=== PATIENT | male | born 1945 | race Caucasian/White ===

== ENCOUNTER 2017-03-25 12:36 | Observation (INO) | payer OTHER, MEDICARE ==
[~2017-03-25] VITALS: Ht 174 cm; Wt 93.0 kg
[~2017-03-25 12:36] MED LIST: ATEN-100 PO; BRIM0.2S; BUDE100T PO; LATA.005%O OD; ZOCO40TA PO
[2017-03-25] MEDS ORDERED: IOHEXOL 350 MG/ML 10 ML VIAL (for RAD DIAG) IVCONTRAST ONE (12:37)
[2017-03-25 12:59] VITALS: BP 139/62; PULSE 82; RESP 16; TEMP 98.1; O2SAT 96
[2017-03-25 13:44] LABS: AUTOMATED NEUTROPHIL # 8.3 TH/MM3 (1.8-7.7); BASOPHIL % 0.3 % (0.0-2.0); EOSINOPHIL % 0.2 % (0.0-4.0); HEMATOCRIT 40.3 % (39.0-51.0); LYMPH % 6.4 % (9.0-44.0); LYMPHOCYTE # 0.6 TH/MM3 (1.0-4.8); MEAN CELL VOLUME 88.9 FL (80.0-100.0); MEAN CORPUSCULAR HEMOGLOBIN 30.9 PG (27.0-34.0); MEAN CORPUSCULAR HGB CONC 34.8 % (32.0-36.0); MEAN PLATELET VOLUME 9.2 FL (7.0-11.0); MONO % 7.1 % (0.0-8.0); MONOCYTE # 0.7 TH/MM3 (0-0.9); PLATELET COUNT 195 TH/MM3 (150-450); RED BLOOD COUNT 4.54 MIL/MM3 (4.50-5.90); RED CELL DISTRIBUTION WIDTH 13.7 % (11.6-17.2); WHITE BLOOD COUNT 9.6 TH/MM3 (4.0-11.0)
[2017-03-25 14:00] VITALS: BP 156/73; PULSE 78; RESP 18; O2SAT 97
[2017-03-25 14:02] LABS: ALBUMIN 3.2 GM/DL (3.4-5.0); AST (GOT) 26 U/L (15-37); BICARBONATE 24.4 MEQ/L (21.0-32.0); BLOOD UREA NITROGEN 14 MG/DL (7-18); CALCIUM 8.4 MG/DL (8.5-10.1); CHLORIDE 105 MEQ/L (98-107); CREATININE 1.13 MG/DL (0.60-1.30); GLOMERULAR FILTRATION RATE 64 ML/MIN (>89); GLUCOSE,RANDOM 151 MG/DL (74-106); SODIUM (NA) 138 MEQ/L (136-145)
[2017-03-25 14:05] LABS: ALKALINE PHOSPHATASE 92 U/L (45-117); ALT (GPT) 41 U/L (12-78); TOTAL BILIRUBIN ADULT 1.1 MG/DL (0.2-1.0); TOTAL PROTEIN 6.9 GM/DL (6.4-8.2)
--- NOTE | 2017-03-25 15:13 | RADRPT ---
EXAM DATE/TIME: 03/25/2017 14:47 [facility] COMPARISON: CHEST SINGLE AP, July 09, 2014, 3:39. INDICATIONS : Dizziness and shortness of breath. MEDICAL HISTORY : Lymphoma. Hypertension. SURGICAL HISTORY : Colon resection. Rotator cuff, left. ENCOUNTER: Initial ACUITY: 2 days PAIN SCORE: 0/10 LOCATION: Bilateral chest FINDINGS: A single view of the chest demonstrates the lungs to be symmetrically aerated without evidence of mas s, infiltrate or effusion. The cardiomediastinal contours are unremarkable. Osseous structures are intact. CONCLUSION: No acute disease. Lonnie Washington MD on March 25, 2017 at 15:05 Board Certified Radiologist. This report was verified electronically.
--- NOTE | 2017-03-25 15:20 | RADRPT ---
EXAM DATE/TIME: 03/25/2017 15:07 [facility] COMPARISON: MRI BRAIN W/O CONTRAST, July 04, 2015, 11:18. INDICATIONS : Weakness for two days. RADIATION DOSE: 56.35 CTDIvol (mGy) MEDICAL HISTORY : Hypertension. Lymphoma. SURGICAL HISTORY : ENCOUNTER: Initial ACUITY: 1 day PAIN SCALE: 0/10 LOCATION: cranial TECHNIQUE: Multiple contiguous axial images were obtained of the head. Using automated exposure control and adj ustment of the mA and/or kV according to patient size, radiation dose was kept as low as reasonably a chievable to obtain optimal diagnostic quality images. DICOM format image data is available electro nically for review and comparison. FINDINGS: CEREBRUM: The ventricles are mildly prominent. Areas of low-attenuation in the periventricular white matter. N o evidence of midline shift, mass lesion, hemorrhage or acute infarction. No extra-axial fluid colle ctions are seen. POSTERIOR FOSSA: The cerebellum and brainstem are intact. The 4th ventricle is midline. The cerebellopontine angle i s unremarkable. EXTRACRANIAL: The visualized portion of the orbits is intact. SKULL: The calvaria is intact. No evidence of skull fracture. CONCLUSION: 1. Cerebral atrophy and chronic ischemic small vessel vasculopathy. 2. No acute intracranial abnormality. Lonnie Washington MD on March 25, 2017 at 15:16 Board Certified Radiologist. This report was verified electronically.
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
--- NOTE | 2017-03-25 16:23 | RADRPT ---
EXAM DATE/TIME: 03/25/2017 16:00 [facility] COMPARISON: CT ABDOMEN & PELVIS W CONTRAST, November 30, 2014, 8:49. INDICATIONS : Diffuse abdomen pain, possible recurrence of lymphoma. IV CONTRAST: 86 cc Omnipaque 350 (iohexol) IV ORAL CONTRAST: No oral contrast ingested. RADIATION DOSE: 18.46 CTDIvol (mGy) ; Combined studies - Thorax/Abdomen/Pelvis MEDICAL HISTORY : Hypertension. Lymphoma. SURGICAL HISTORY : Colostomy. ENCOUNTER: Initial ACUITY: 2 days PAIN SCALE: 8/10 LOCATION: Bilateral lower quadrant TECHNIQUE: Volumetric scanning of the abdomen and pelvis was performed. Using automated exposure control and ad justment of the mA and/or kV according to patient size, radiation dose was kept as low as reasonably achievable to obtain optimal diagnostic quality images. DICOM format image data is available electro nically for review and comparison. FINDINGS: LOWER LUNGS: There is patchy opacity now noted in the left lower lobe. LIVER: Homogeneous density without lesion. There is no dilation of the biliary tree. Status post cholecyste ctomy. SPLEEN: Normal size without lesion. PANCREAS: Within normal limits. KIDNEYS: Normal in size and shape. There is no solid mass, stone or hydronephrosis. Simple cyst is again note d extending off the lower pole the right kidney. There is a smaller medial cysts. ADRENAL GLANDS: Within normal limits. VASCULAR: There is no aortic aneurysm. BOWEL/MESENTERY: The stomach, small bowel, and colon demonstrate no acute abnormality. There is no free intraperitone al air or fluid. Mild postsurgical changes are noted status post partial colectomy. ABDOMINAL WALL: Within normal limits. RETROPERITONEUM: There is no lymphadenopathy. BLADDER: No wall thickening or mass. REPRODUCTIVE: Within normal limits. INGUINAL: There is no lymphadenopathy or hernia. MUSCULOSKELETAL: Within normal limits for patient age. CONCLUSION: 1. No evidence of adenopathy. 2. The spleen is within normal limits. 3. Unremarkable bowel gas pattern with no inflammatory change. 4. Mild patchy opacity in the posterior left lower lobe which could represent pneumonia. [facility] for further details. Seamus Bond MD on March 25, 2017 at 16:15 Board Certified Radiologist. This report was verified electronically.
--- NOTE | 2017-03-25 16:36 | RADRPT ---
EXAM DATE/TIME: 03/25/2017 16:00 [facility] COMPARISON: No previous studies available for comparison. INDICATIONS : Short of breath, possible recurrence lymphoma. IV CONTRAST: 86 cc Omnipaque 350 (iohexol) IV RADIATION DOSE: 18.46 CTDIvol (mGy) ; Combined studies - Thorax/Abdomen/Pelvis MEDICAL HISTORY : Hypertension. Lymphoma. SURGICAL HISTORY : Colostomy. ENCOUNTER: Initial ACUITY: 2 days PAIN SCALE: 7/10 LOCATION: Bilateral chest TECHNIQUE: Volumetric scanning of the chest was performed. Using automated exposure control and adjustment of t he mA and/or kV according to patient size, radiation dose was kept as low as reasonably achievable to obtain optimal diagnostic quality images. DICOM format image data is available electronically for review and comparison. Follow-up recommendations for detected pulmonary nodules are based at a minimum on nodule size and pa tient risk factors according to Fleischner Society Guidelines. FINDINGS: LUNGS: There is a small area consolidation involving the posterior basilar segmental left lower lobe. There is circumferential thickening involving the subsegmental bronchi within this region as well. The tomás ining lungs are clear. No mass. PLEURA: There is no pleural thickening or pleural effusion. MEDIASTINUM: The heart is normal in size. Coronary artery atherosclerotic calcifications noted. Aorta and pulmonar y arteries are normal in caliber. No mass or adenopathy. AXILLAE: Within normal limits. No lymphadenopathy. SKELETAL: Within normal limits for patient age. MISCELLANEOUS: The visualized upper abdominal organs demonstrate no acute abnormality. CONCLUSION: 1. Consolidation with associated mild peribronchial thickening involving the left lower lobe likely r elating to an infectious infiltrate. No effusion. 2. Coronary artery atherosclerotic calcifications. 3. No CT evidence to suggest recurrent lymphoma. Jcarlos Del Toro Jr., MD on March 25, 2017 at 16:30 Board Certified Radiologist. This report was verified electronically.
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
[2017-03-25 17:04] VITALS: BP_SYST 114; BP_SYST 146; BP_SYST 150; BP_DIAS 57; BP_DIAS 67; RESP 18; RESP 20
[2017-03-25 17:19] VITALS: BP 142/63; PULSE 88; RESP 18; TEMP 95.5; O2SAT 98
--- NOTE | 2017-03-25 17:46 | HHI.HP ---
HPI Service [facility] Hospitalists Primary Care Physician [facility] Admission Diagnosis hypoglycemia, unsteady gait, dizziness, intractable hiccups Diagnoses: Chief Complaint: Unsteadiness Weak Travel History International Travel<30 Days: No Contact w/Intl Traveler <30 Da: No Traveled to Known Affected Are: No History of Present Illness Written by Betty Cook, acting as scribe for Dr. Castellanos on 03/25/17 at 17: 39. 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 Patient was actually at PT appointment at the [place] for his balance issues and was sent over to our ED for further evaluation. He denies any history of fall. Reports increased confusion disorientation and forgetfulness per the ED. He denies any headache. He endorses double vision. He denies any hearing loss. He denies any nausea, vomiting, chest pain or dyspnea. He denies any weakness. He reports lightheadedness when sitting up. In the EMS, he was found to be hypoglycemic with a blood sugar of 50 and was given oral glucose with improvement and repeat blood sugar to 154. He denies any history of DM. Patient states he didn't eat much for breakfast this morning, just a banana and iced T but does state that this his normal breakfast regimen. CT of the head shows no acute intracranial process. CT of the chest shows a likely infectious infiltrate left lower lobe. His orthostatics were positive dropping from 146 supine to 114 with standing. Review of Systems Except as stated in HPI: all other systems reviewed are Neg Past Family Social History Past Medical History Hypertension HLD Glaucoma History of perforated diverticulitis Hx of MALT lymphoma s/p resection and XRT Past Surgical History s/p Bowel resection and colostomy with subsequent takedown 5 yrs ago Reported Medications Simvastatin 40 mg by mouth daily Atenolol 25 mg daily Bupropion 150 mg by mouth 3 times a day Brimonidine tartrate 0.2% solution Xalatan Allergies: Coded Allergies: buspirone (Unverified Allergy, Severe, Nausea/Vomiting, 10/06/16) codeine (Unverified Allergy, Severe, Nausea/Vomiting, 10/06/16) fentanyl (Unverified Allergy, Severe, Nausea/Vomiting, 10/06/16) Active Ordered Medications Active Medications Iohexol (Omnipaque 350 Inj) 86 ml STK-MED ONCE IVCONTRAST Last administered on at 16:06; Admin Dose 86 ML; Start 03/25/17 at 12:37; Stop 03/25/17 at 16:04; Status DC Family History Patient denies any contributory FMHX Social History Patient denies any tobacco use or EtOH consumption. Physical Exam Vital Signs Vital Signs Date Time Temp Pulse Resp B/P (MAP) Pulse Ox O2 Delivery O2 Flow Rate FiO2 03/25/17 17:19 95.5 88 18 142/63 (89) 98 03/25/17 17:18 03/25/17 17:04 94 20 146/67 (93) 98 18 150/67 (94) 100 20 114/57 (76) 03/25/17 14:00 78 18 156/73 (100) 97 Room Air 03/25/17 12:59 98.1 82 16 139/62 (87) 96 Physical Exam GENERAL: This is a well-nourished, well-developed male patient, in no apparent distress. Awake and alert. Oriented 3. Patient is obviously unsteady upon standing and with attempts at ambulation. SKIN: No rashes, ecchymoses or lesions. Cool and dry. HEAD: Atraumatic. Normocephalic. No temporal or scalp tenderness. EYES: Pupils equal round and reactive. Extraocular motions intact. No scleral icterus. No injection or drainage. ENT: Nose without bleeding or purulent drainage. Throat without erythema, tonsillar hypertrophy or exudate. Uvula midline. Airway patent. NECK: Trachea midline. No lymphadenopathy. Supple, nontender, no meningeal signs. CARDIOVASCULAR: Regular rate and rhythm without murmurs, gallops, or rubs. RESPIRATORY: Clear to auscultation. Breath sounds equal bilaterally. No wheezes , rales, or rhonchi. GASTROINTESTINAL: Abdomen soft, non-tender, nondistended. No hepato-splenomegaly , or palpable masses. No guarding. MUSCULOSKELETAL: Extremities without clubbing, cyanosis, or edema. No joint tenderness, effusion, or edema noted. No calf tenderness. NEUROLOGICAL: Awake and alert. Cranial nerves II through XII grossly intact. Motor and sensory grossly within normal limits. Five out of 5 muscle strength in all muscle groups. Normal speech. Laboratory Laboratory Tests Test 03/25/17 13:10 White Blood Count 9.6 Red Blood Count 4.54 Hemoglobin 14.0 Hematocrit 40.3 Mean Corpuscular Volume 88.9 Mean Corpuscular Hemoglobin 30.9 Mean Corpuscular Hemoglobin Concent 34.8 Red Cell Distribution Width 13.7 Platelet Count 195 Mean Platelet Volume 9.2 Neutrophils (%) (Auto) 86.0 Lymphocytes (%) (Auto) 6.4 Monocytes (%) (Auto) 7.1 Eosinophils (%) (Auto) 0.2 Basophils (%) (Auto) 0.3 Neutrophils # (Auto) 8.3 Lymphocytes # (Auto) 0.6 Monocytes # (Auto) 0.7 Eosinophils # (Auto) 0.0 Basophils # (Auto) 0.0 CBC Comment DIFF FINAL Differential Comment Blood Urea Nitrogen 14 Creatinine 1.13 Random Glucose 151 Total Protein 6.9 Albumin 3.2 Calcium Level 8.4 Alkaline Phosphatase 92 Aspartate Amino Transf (AST/SGOT) 26 Alanine Aminotransferase (ALT/SGPT) 41 Total Bilirubin 1.1 Sodium Level 138 Potassium Level 4.1 Chloride Level 105 Carbon Dioxide Level 24.4 Anion Gap 9 Estimat Glomerular Filtration Rate 64 Result Diagram: 03/25/17 1310 03/25/17 1310 Imaging Last Impressions Abdomen/Pelvis CT 03/25/17 1537 Signed Impressions: Service Date/Time: March 16:00 - CONCLUSION: 1. No evidence of adenopathy. 2. The spleen is within normal limits. 3. Unremarkable bowel gas pattern with no inflammatory change. 4. Mild patchy opacity in the posterior left lower lobe which could represent pneumonia. Please see chest CT report for further details. Seamus Bond MD Chest X-Ray 03/25/17 1435 Signed Impressions: Service Date/Time: March 14:47 - CONCLUSION: No acute disease. Lonnie Washington MD Head CT 03/25/17 0000 Signed Impressions: Service Date/Time: March 15:07 - CONCLUSION: 1. Cerebral atrophy and chronic ischemic small vessel vasculopathy. 2. No acute intracranial abnormality. Lonnie Washington MD Chest CT 03/25/17 0000 Signed Impressions: Service Date/Time: March 16:00 - CONCLUSION: 1. Consolidation with associated mild peribronchial thickening involving the left lower lobe likely relating to an infectious infiltrate. No effusion. 2. Coronary artery atherosclerotic calcifications. 3. No CT evidence to suggest recurrent lymphoma. MD Ced Nielsen Jr. VTE Risk Assessment Caprini VTE Risk Assessment: Mod/High Risk (score >= 2) Caprini Risk Assessment Model Point Value = 1 Point Value = 2 Point Value = 3 Point Value = 5 Age 41-60 Minor surgery BMI > 25 kg/m2 Swollen legs Varicose veins or History of unexplained or recurrent spontaneous Oral contraceptives or hormone replacement Sepsis (< 1 month) Serious lung disease, including pneumonia (< 1 month) Abnormal pulmonary function Acute myocardial infarction Congestive heart failure (< 1 month) History of inflammatory bowel disease Medical patient at bed rest Age 61-74 Arthroscopic surgery Major open surgery (> 45 min) Laparoscopic surgery (> 45 min) Malignancy Confined to bed (> 72 hours) Immobilizing plaster cast Central venous access Age >= 75 History of VTE Family history of VTE Factor V Leiden Prothrombin [id number] Lupus anticoagulant Anticardiolipin antibodies Elevated serum homocysteine Heparin-induced thrombocytopenia Other congenital or acquired thrombophilia Stroke (< 1 month) Elective arthroplasty Hip, pelvis, or leg fracture Acute spinal cord injury (< 1 month) Prophylaxis Regimen Total Risk Factor Score Risk Level Prophylaxis Regimen 0-1 Low Early ambulation 2 Moderate Order ONE of the following: *Sequential Compression Device (SCD) *Heparin 5000 units SQ BID 3-4 Higher Order ONE of the following medications: *Heparin 5000 units SQ TID *Enoxaparin/Lovenox 40 mg SQ daily (WT < 150 kg, CrCl > 30 mL/min) *Enoxaparin/Lovenox 30 mg SQ daily (WT < 150 kg, CrCl > 10-29 mL/min) *Enoxaparin/Lovenox 30 mg SQ BID (WT < 150 kg, CrCl > 30 mL/min) AND/OR *Sequential Compression Device (SCD) 5 or more Highest Order ONE of the following medications: *Heparin 5000 units SQ TID (Preferred with Epidurals) *Enoxaparin/Lovenox 40 mg SQ daily (WT < 150 kg, CrCl > 30 mL/min) *Enoxaparin/Lovenox 30 mg SQ daily (WT < 150 kg, CrCl > 10-29 mL/min) *Enoxaparin/Lovenox 30 mg SQ BID (WT < 150 kg, CrCl > 30 mL/min) AND *Sequential Compression Device (SCD) Assessment and Plan Assessment and Plan 71yo male with PMHX of HTN, dyslipidemia and 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 Unsteady gait Possible orthostatic hypotension - CT the head shows no acute intracranial process, images reviewed by me - CT of the abdomen/pelvis shows no evidence of adenopathy, mild patchy opacity in the posterior left lower lobe representing pneumonia, images reviewed by me - CT chest has consolidation with associated mild peribronchial thickening involving left lower lobe likely related to infectious infiltrate, no evidence to suggest recurrent lymphoma, images reviewed by me - Consult Neurology, appreciate recommendations - orthostatic BP measurements positive - Consult PT - fall precautions Hypoglycemia - Blood sugar 50 in the ED - no hx of DM - continue to monitor blood sugars Pneumonia, community acquired - CT the chest as stated above - Chest x-ray shows no acute cardiopulmonary process, images reviewed by me - IV Azithromycin and Rocephin - monitor respiratory status - supplemental oxygen to maintain O2 sats above 92% Hypertension - hold antihypertensive medications for now due to positive orthostatics - monitor DVT prophylaxis - bilateral SCD/ASIA hose the above note was scribed by Ms.Shannon Cook. I attest that I had a face- to-face encounter with the patient and personally performed the history and physical exam, medical decision making and reviewed the findings and the plan with the patient. Discussed Condition With ED physician, nursing staff, patient Betty Cook Mar 25, 2017 17:46 Marie Castellanos MD Mar 25, 2017 18:23
[2017-03-25] MEDS: SODIUM CHLOR 0.9% 1000 ML INJ 1,000 ML IV SCH (18:29)
[2017-03-25 19:47] VITALS: BP_SYST 142; BP_SYST 160; BP_DIAS 65; BP_DIAS 72; PULSE 100; RESP 17; O2SAT 96
[2017-03-25] MEDS ORDERED: AZITHROMYCIN INJ 500 MG in SODIUM CHLOR 0.9% 250 ML INJ 250 ML IV SCH (20:00)
[2017-03-25] MEDS: PRAVASTATIN SOD 80 MG TAB PO SCH (20:28)
[2017-03-25] MEDS ORDERED: cefTRIAXone INJ 1,000 MG in SODIUM CHLORIDE 0.9% INJ 100 ML IV SCH (21:00)
[2017-03-25] MEDS: BRIMONIDINE TARTRATE 0.2% OPHT SOLN 5 ML BTL EACH EYE SCH (23:18)
[2017-03-25 23:19] VITALS: BP 137/64; PULSE 99; RESP 18; TEMP 99.7; O2SAT 94
[2017-03-26 03:46] VITALS: BP 139/67; PULSE 96; RESP 17; TEMP 99.6; O2SAT 95
[2017-03-26] MEDS: SODIUM CHLOR 0.9% 1000 ML INJ 1,000 ML IV SCH (05:38)
[2017-03-26 07:32] VITALS: BP 147/76; PULSE 92; RESP 18; TEMP 97.9; O2SAT 95
--- NOTE | 2017-03-26 10:25 | PD.CONS ---
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 Admitted to the hospital with generalized weakness and unsteady gait, was at PT appointment at the [place] for his balance issues, was sent to ED for acute confusion and symptoms of orthostasis. In the EMS, he was found to be hypoglycemic with glucose of 50 and was given oral glucose with improvement and repeat blood sugar to 154. On evaluation the patient has resolution of AMS, but nauseated. CT of the head shows no acute intracranial process. CT of the chest shows a likely infectious infiltrate left lower lobe. His orthostatics were positive dropping from 146 supine to 114 with standing. In discussing further with patient, he notes diplopia starting 2 months ago. He was evaluated at the [place], states that he saw Ophthalmology and prism lenses were prescribed with improvement in vision. Patient states that his balance has been off for a couple of months, and he has been going to PT for this. Review of Systems Except as stated in HPI: all other systems reviewed are Neg Past Family Social History Past Medical History Hypertension HLD Glaucoma History of perforated diverticulitis Hx of MALT lymphoma s/p resection and XRT Past Surgical History s/p Bowel resection and colostomy with subsequent takedown Reported Medications Simvastatin 40 mg by mouth daily Atenolol 25 mg daily Bupropion 150 mg by mouth 3 times a day Brimonidine tartrate 0.2% solution Xalatan Allergies: Coded Allergies: buspirone (Unverified Allergy, Severe, Nausea/Vomiting, 10/06/16) codeine (Unverified Allergy, Severe, Nausea/Vomiting, 10/06/16) fentanyl (Unverified Allergy, Severe, Nausea/Vomiting, 10/06/16) Family History Patient notes mother had Parkinson's Disease Social History Patient denies any tobacco use or EtOH consumption. Review of Systems All other ROS: Negative, ROS reviewed as documented in chart Past Family Social History Allergies: Coded Allergies: buspirone (Unverified Allergy, Severe, Nausea/Vomiting, 10/06/16) codeine (Unverified Allergy, Severe, Nausea/Vomiting, 10/06/16) fentanyl (Unverified Allergy, Severe, Nausea/Vomiting, 10/06/16) Active Ordered Medications Current Medications Medications (Trade) Dose Ordered Sig/Monica Route Start Time Stop Time Status Last Admin Sodium Chloride 1,000 ml @ 100 mls/hr Q10H IV 03/25/17 18:30 03/26/17 05:38 Ceftriaxone Sodium 1000 mg/ Sodium Chloride 100 ml @ 200 mls/hr Q24H IV 03/25/17 21:00 03/25/17 23:19 Azithromycin 500 mg/Sodium Chloride 250 ml @ 250 mls/hr Q24H IV 03/25/17 20:00 03/25/17 20:29 (Pravachol) 80 mg HS PO 03/25/17 21:00 (Alphagan 0.2% Opth Soln) 1 drop BID EACH EYE 03/25/17 21:30 03/25/17 23:18 (Xalatan 0.005% Opth Soln) 1 drop HS EACH EYE 03/26/17 21:00 Exam I&O / VS Vital Signs Date Time Temp Pulse Resp B/P (MAP) Pulse Ox O2 Delivery O2 Flow Rate FiO2 03/26/17 07:32 97.9 92 18 147/76 (99) 95 03/26/17 03:46 99.6 96 17 139/67 (91) 95 03/25/17 23:19 99.7 99 18 137/64 (88) 94 03/25/17 19:47 100 17 142/65 (90) 96 03/25/17 17:19 95.5 88 18 142/63 (89) 98 03/25/17 17:18 03/25/17 17:04 94 20 146/67 (93) 98 18 150/67 (94) 100 20 114/57 (76) 03/25/17 14:00 78 18 156/73 (100) 97 Room Air 03/25/17 12:59 98.1 82 16 139/62 (87) 96 General: Alert and Oriented, No acute distress Eye: PERRL, EOMI, Vision unchanged Respiratory: Lungs CTA, Non-labored respirations, Symmetrical expansion Cardiology: Normal rate, No edema Neurologic: Alert, Oriented, Normal sensory, Normal DTR's Psychiatric: Cooperative, Appropriate mood & affect, Normal judgement Exam Comments o x 3, moss answers to questions, world/dlrow, 5 quarters in $1.25, speech is fluent, EOMI without nystagmus, no temporal artery tenderness, no tremor, no drift, mild B/L upper extremity rigidity, no focal weakness, VFF, FNF intact, no clonus Review/Management Diagnosis/Plan: (1) Dizziness ICD Codes: R42 - Dizziness and giddiness Status: Acute Plan: Ortostatics IV hydration Getting IV Abx for possible CAP (2) Hypoglycemia ICD Codes: E16.2 - Hypoglycemia, unspecified Status: Acute Plan: Seems to be the main cause of his AMS, improving (3) Unsteady gait ICD Codes: R26.81 - Unsteadiness on feet Status: Chronic Plan: Has been chronic for a couple of months PT eval Fall precautions (4) Diplopia ICD Codes: H53.2 - Diplopia Status: Chronic Plan: rx prism lens by ophtho as outpt Kaushik Aquino Mar 26, 2017 10:25
[2017-03-26 11:15] VITALS: BP 162/74; PULSE 101; RESP 18; TEMP 98; O2SAT 95
--- NOTE | 2017-03-26 12:07 | HHI.PR ---
Subjective Remarks Follow up for hypoglycemia, unsteady gait, pneumonia. Patient is doing well, resting in bed. Has some cough, no fever, chills. Wants to go home if possible. Waiting for MRI studies. Objective Vitals Vital Signs Date Time Temp Pulse Resp B/P (MAP) Pulse Ox O2 Delivery O2 Flow Rate FiO2 03/26/17 11:15 98.0 101 18 162/74 (103) 95 03/26/17 07:32 97.9 92 18 147/76 (99) 95 03/26/17 03:46 99.6 96 17 139/67 (91) 95 03/25/17 23:19 99.7 99 18 137/64 (88) 94 03/25/17 19:47 100 17 142/65 (90) 96 03/25/17 17:19 95.5 88 18 142/63 (89) 98 03/25/17 17:18 03/25/17 17:04 94 20 146/67 (93) 98 18 150/67 (94) 100 20 114/57 (76) 03/25/17 14:00 78 18 156/73 (100) 97 Room Air 03/25/17 12:59 98.1 82 16 139/62 (87) 96 I/O 03/25/17 03/25/17 03/25/17 03/26/17 03/26/17 03/26/17 07:00 15:00 23:00 07:00 15:00 23:00 Intake Total 500 ml Balance 500 ml Intake Oral 500 ml Result Diagram: 03/25/17 1310 03/25/17 1310 Imaging Last Impressions Abdomen/Pelvis CT 03/25/17 1537 Signed Impressions: Service Date/Time: March 16:00 - CONCLUSION: 1. No evidence of adenopathy. 2. The spleen is within normal limits. 3. Unremarkable bowel gas pattern with no inflammatory change. 4. Mild patchy opacity in the posterior left lower lobe which could represent pneumonia. Please see chest CT report for further details. Seamus Bond MD Chest X-Ray 03/25/17 1435 Signed Impressions: Service Date/Time: March 14:47 - CONCLUSION: No acute disease. Lonnie Washington MD Head CT 03/25/17 0000 Signed Impressions: Service Date/Time: March 15:07 - CONCLUSION: 1. Cerebral atrophy and chronic ischemic small vessel vasculopathy. 2. No acute intracranial abnormality. Lonnie Washington MD Chest CT 03/25/17 0000 Signed Impressions: Service Date/Time: March 16:00 - CONCLUSION: 1. Consolidation with associated mild peribronchial thickening involving the left lower lobe likely relating to an infectious infiltrate. No effusion. 2. Coronary artery atherosclerotic calcifications. 3. No CT evidence to suggest recurrent lymphoma. Jcarlos Del Toro Jr., MD Objective Remarks GENERAL: Alert, NAD. SKIN: Warm and dry. HEAD: Normocephalic. EYES: No scleral icterus. No injection or drainage. NECK: Supple, trachea midline. No JVD or lymphadenopathy. CARDIOVASCULAR: Regular rate and rhythm without murmurs, gallops, or rubs. RESPIRATORY: Breath sounds equal bilaterally. No accessory muscle use. GASTROINTESTINAL: Abdomen soft, non-tender, nondistended. MUSCULOSKELETAL: No cyanosis, or edema. BACK: Nontender without obvious deformity. No CVA tenderness. Procedures None. 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 Unsteady gait orthostatic hypotension - CT head shows no acute abnormalities. - Neurology following, EEG and MRI studies pending. - Orthostatic hypotension was significant. On standing BP Dropped more than 30. Hypoglycemia - Blood sugar 50 in the ED, currently euglycemic. Pneumonia, community acquired - CT the chest shows left lung infiltrates. - Will switch to Levaquin 750mg Qday X 6 days. - DuoNeb PRN. Hypertension - D/C Atenolol and start Amlodipine 5mg Qday. Full code. SCDs. Discharge: Pending neurology clearance, patient can be discharged home. Kalli Rivera DO Mar 26, 2017 12:07 pm
[2017-03-26] MEDS ORDERED: amLODIPine BESYLATE 5 MG TAB PO ONE (12:15)
[2017-03-26] MEDS ORDERED: RESP: ALBUTEROL 2.5 MG/IPRATROPIUM 0.5 MG NEB (PRN) NEB (12:15)
--- NOTE | 2017-03-26 14:45 | RADRPT ---
EXAM DATE/TIME: 03/26/2017 14:02 [facility] COMPARISON: MRI BRAIN W/O CONTRAST, July 04, 2015, 11:18. INDICATIONS : Unsteady gait. Dizziness MEDICAL HISTORY : Lymphoma. SURGICAL HISTORY : Colon resection. Left shoulder, left hip. ENCOUNTER: Initial ACUITY: 1 day PAIN SCORE: 0/10 LOCATION: cranial TECHNIQUE: Multiplanar, multisequence MRI of the brain was performed without contrast. FINDINGS: The brain is stable in appearance. Central atrophy with ventriculomegaly and periventricular matter disease is again noted. There is no evidence of restricted diffusion, hemorrhage or mass effect. The cerebral hemispheres remain unremarkable in appearance CONCLUSION: 1. No evidence of acute infarct, hemorrhage, mass or edema. 2. Central atrophy and mild periventricular white matter disease; unchanged. Taj Cheema MD on March 26, 2017 at 14:39 Board Certified Radiologist. This report was verified electronically.
[2017-03-26] MEDS: BRIMONIDINE TARTRATE 0.2% OPHT SOLN 5 ML BTL EACH EYE SCH ×2 (14:55→21:51)
[2017-03-26] MEDS: LEVOFLOXACIN 750 MG TAB PO SCH (14:56)
[2017-03-26 15:14] VITALS: BP 152/68; PULSE 107; RESP 18; TEMP 98; O2SAT 95
--- NOTE | 2017-03-26 15:14 | RADRPT ---
EXAM DATE/TIME: 03/26/2017 14:02 [facility] COMPARISON: No previous studies available for comparison. INDICATIONS : Unsteady gait. MEDICAL HISTORY : Lymphoma. SURGICAL HISTORY : Colon resection. Left hip, left shoulder. ENCOUNTER: Initial ACUITY: 1 day PAIN SCORE: 0/10 LOCATION: Paraspinal TECHNIQUE: Multiplanar, multisequence MRI examination of the cervical spine was performed. FINDINGS: VERTEBRAE: Normal vertebral body height. Homogeneous marrow signal. Degenerative disc disease C4-5, C5-6 and C6 -7 levels. T2 signal abnormality in the brainstem. ALIGNMENT: Minimal anterolisthesis C4 on 5. CORD: Normal configuration and signal. POST FOSSA: The cerebellar tonsils are normal in position. C2-C3: The thecal sac has a normal configuration. There is no evidence of disc herniation or spinal canal s tenosis. The neural foramina are patent bilaterally. C3-C4: The thecal sac has a normal configuration. There is no evidence of disc herniation or spinal canal s tenosis. The neural foramina are patent bilaterally. C4-C5: Small broad-based protrusion abuts ventral thecal sac and abuts the ventral cord. No canal stenosis. Uncovertebral spurring causes mild bilateral neural foraminal encroachment. C5-C6: Mild broad-based protrusion abuts the thecal sac it abuts ventral cord. No canal stenosis. Uncoverteb ral spurring causes moderate bilateral neural foraminal encroachment. C6-C7: The thecal sac has a normal configuration. There is no evidence of disc herniation or spinal canal s tenosis. The neural foramina are patent bilaterally. C7-T1: The thecal sac has a normal configuration. There is no evidence of disc herniation or spinal canal s tenosis. The neural foramina are patent bilaterally. CONCLUSION: 1. Protrusions at C4-5 and C5-6 levels without canal stenosis. 2. Chronic ischemic change in the brainstem. Lonnie Washington MD on March 26, 2017 at 15:09 Board Certified Radiologist. This report was verified electronically.
[2017-03-26] MEDS ORDERED: METOCLOPRAMIDE HCL 10 MG TAB PO ONE (17:00)
--- NOTE | 2017-03-26 19:36 | EKG ---
Date Performed: 03/25/2017 Time Performed: 13:31:11 PTAGE: 71 years EKG: Sinus rhythm Since the prior tracing, there has been no significant change BORDERLINE ECG PREVIOUS TRACING : 07/07/2014 11.51 DOCTOR: Delbert Noland Interpretating Date/Time 03/26/2017 19:35:05
[2017-03-26 19:49] VITALS: BP 125/65; PULSE 111; RESP 18; TEMP 98.1; O2SAT 97
[2017-03-26] MEDS ORDERED: LATANOPROST 0.005% OPHT SOLN 2.5 ML BTL EACH EYE SCH (21:00)
[2017-03-26] MEDS: PRAVASTATIN SOD 80 MG TAB PO SCH (21:50)
[2017-03-26 23:49] VITALS: BP 155/69; PULSE 105; RESP 18; TEMP 97.8; O2SAT 94
[2017-03-27 04:32] VITALS: BP 148/84; PULSE 84; RESP 18; TEMP 98.9; O2SAT 96
--- NOTE | 2017-03-27 07:03 | MG ---
cc: JAMIA NASSAR MD Lab No: [id number] Date: 03/26/2017 Age:71 Sex: M Race: DATE OF : 1945 HISTORY: 71-year-old history of lightheadedness, diaphoresis, dizziness shuffling gait, forgetfulness. PROCEDURE: 107 Hz posterior rhythm, 2050 microvolts followed by bursts of 2-3 Hz generalized delta activity. Myogenic frontal artifact. Paroxysmal delta bursts occurring. The background slowing transition into drowsy state. Limited driving with photic stimulation. INTERPRETATION Mild encephalopathy in drowsy state. Clinical correlation. Jamia Nassar MD MG/ /9:21 PM /6:55 AM
[2017-03-27] MEDS: BRIMONIDINE TARTRATE 0.2% OPHT SOLN 5 ML BTL EACH EYE SCH (08:43)
[2017-03-27] MEDS: LEVOFLOXACIN 750 MG TAB PO SCH (08:43)
[2017-03-27] MEDS ORDERED: amLODIPine BESYLATE 5 MG TAB PO SCH (09:00)
[2017-03-27 09:39] VITALS: BP 148/65; PULSE 115; RESP 20; TEMP 98.2; O2SAT 96
--- NOTE | 2017-03-27 11:14 | HHI.DCPOC ---
Discharge Care Plan Diagnosis: (1) Pneumonia involving left lung (2) Unsteady gait Goals to Promote Your Health * To prevent worsening of your condition and complications * To maintain your health at the optimal level Directions to Meet Your Goals Take your medications as prescribed Follow your dietary instruction Follow activity as directed Keep your appointments as scheduled Take your immunizations and boosters as scheduled If your symptoms worsen call your PCP, if no PCP go to Urgent Care Center or Emergency Room Smoking is Dangerous to Your Health. Avoid second hand smoke Call the 24-hour hour crisis hotline for domestic abuse at Radha Espino MD Mar 27, 2017 11:14
[2017-03-27] MEDS ORDERED: LEVA750T9 PO (11:15)
[2017-03-27] MEDS ORDERED: AMLO5 PO (11:16)
--- NOTE | 2017-03-27 11:19 | HHI.DS ---
Discharge Summary Admission Date Mar 25, 2017 at 16:03 Discharge Date: Mar 27, 2017 Admitting Diagnosis hypoglycemia, unsteady gait, dizziness, intractable hiccups (1) Pneumonia involving left lung ICD Code: J18.9 - Pneumonia, unspecified organism Diagnosis: Principal (2) Hypoglycemia ICD Code: E16.2 - Hypoglycemia, unspecified Diagnosis: Principal Status: Acute (3) Unsteady gait ICD Code: R26.81 - Unsteadiness on feet Diagnosis: Principal Status: Chronic Procedures None. 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 ED with complaints of generalized weakness and unsteady gait for the past two weeks. Patient was actually at PT appointment at the [place] for his balance issues and was sent over to our ED for further evaluation. He denies any history of fall. Reports increased confusion disorientation and forgetfulness per the ED. He denies any headache. He endorses double vision. He denies any hearing loss. He denies any nausea, vomiting, chest pain or dyspnea. He denies any weakness. He reports lightheadedness when sitting up. In the EMS, he was found to be hypoglycemic with a blood sugar of 50 and was given oral glucose with improvement and repeat blood sugar to 154. He denies any history of DM. Patient states he didn't eat much for breakfast this morning, just a banana and iced T but does state that this his normal breakfast regimen. CT of the head shows no acute intracranial process. CT of the chest shows a likely infectious infiltrate left lower lobe. His orthostatics were positive dropping from 146 supine to 114 with standing. CBC/BMP: 03/25/17 1310 03/25/17 1310 Significant Findings Laboratory Tests Test 03/25/17 13:10 03/26/17 10:25 Neutrophils (%) (Auto) 86.0 % (16.0-70.0) Lymphocytes (%) (Auto) 6.4 % (9.0-44.0) Neutrophils # (Auto) 8.3 TH/MM3 (1.8-7.7) Lymphocytes # (Auto) 0.6 TH/MM3 (1.0-4.8) Random Glucose 151 MG/DL (74-106) Albumin 3.2 GM/DL (3.4-5.0) Calcium Level 8.4 MG/DL (8.5-10.1) Total Bilirubin 1.1 MG/DL (0.2-1.0) Estimat Glomerular Filtration Rate 64 ML/MIN (>89) Erythrocyte Sedimentation Rate 50 mm/hr (0-20) Imaging Last Impressions Cervical Spine MRI 03/26/17 Signed Impressions: Service Date/Time: Sunday, March 26, 2017 14:02 - CONCLUSION: 1. Protrusions at C4-5 and C5-6 levels without canal stenosis. 2. Chronic ischemic change in the brainstem. Lonnie Washington MD Brain MRI 03/26/17 Signed Impressions: Service Date/Time: Sunday, March 26, 2017 14:02 - CONCLUSION: 1. No evidence of acute infarct, hemorrhage, mass or edema. 2. Central atrophy and mild periventricular white matter disease; unchanged. Taj Cheema MD Abdomen/Pelvis CT 03/25/17 1537 Signed Impressions: Service Date/Time: March 16:00 - CONCLUSION: 1. No evidence of adenopathy. 2. The spleen is within normal limits. 3. Unremarkable bowel gas pattern with no inflammatory change. 4. Mild patchy opacity in the posterior left lower lobe which could represent pneumonia. Please see chest CT report for further details. Seamus Bond MD Chest X-Ray 03/25/17 1435 Signed Impressions: Service Date/Time: March 14:47 - CONCLUSION: No acute disease. Lonnie Washington MD Head CT 03/25/17 0000 Signed Impressions: Service Date/Time: March 15:07 - CONCLUSION: 1. Cerebral atrophy and chronic ischemic small vessel vasculopathy. 2. No acute intracranial abnormality. Lonnie Washington MD Chest CT 03/25/17 0000 Signed Impressions: Service Date/Time: March 16:00 - CONCLUSION: 1. Consolidation with associated mild peribronchial thickening involving the left lower lobe likely relating to an infectious infiltrate. No effusion. 2. Coronary artery atherosclerotic calcifications. 3. No CT evidence to suggest recurrent lymphoma. Jcarlos Del Toro Jr., MD PE at Discharge GENERAL: Alert, NAD. SKIN: Warm and dry. HEAD: Normocephalic. EYES: No scleral icterus. No injection or drainage. NECK: Supple, trachea midline. No JVD or lymphadenopathy. CARDIOVASCULAR: Regular rate and rhythm without murmurs, gallops, or rubs. RESPIRATORY: Breath sounds equal bilaterally. No accessory muscle use. GASTROINTESTINAL: Abdomen soft, non-tender, nondistended. MUSCULOSKELETAL: No cyanosis, or edema. BACK: Nontender without obvious deformity. No CVA tenderness. NEURO: AAO X 3. CN 2-12 intact. 5/5 upper and lower ext strength. Sensation intact. Pt update on day of discharge Follow-up for unsteady gait and dizziness Patient caregiver at the bedside during the interview. Patient stated that he has not had any episodes of dizziness. He stated that this has been intermittent for the past 3 months. At the moment he denies any neurological symptoms. Denies any chest pain, shortness of breathing, palpitation. Dizziness scribe more as a lightheadedness. He stated that when he tries to stand up quickly he feels unsteadiness on his feet. Patient stated that it then resolves. 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 ED with complaints of generalized weakness, double vision and unsteady gait for the past two weeks. Unsteady gait orthostatic hypotension - CT head shows no acute abnormalities. - Neurology following, EEG and MRI reviewed. EEG negative for any seizure activity. MRI does not show any acute etiology. - Orthostatic hypotension was significant. Patient was given IV fluids in which symptomatically helped him greatly. -Most likely in terms due to orthostatic hypotension. With oral intake or fluids seems outpatient so no medication was indicated. Patient so he will need to follow-up with his primary care provider to make sure that he continues to do well. -Education given on hydration and patient was given directions on how to go from a laying to sitting to standing position. So that he does not put himself in the situation where he stands too quickly in which she gets lightheadedness or dizziness. Hypoglycemia - Blood sugar 50 with a VAC. Otherwise blood sugars have been normal during his hospital course. Hemoglobin A1c was obtained but was pending on the day of discharge. Patient stated will not need to follow with PCP regards to results. Pneumonia, community acquired - CT the chest shows left lung infiltrates. -Prior to this patient had a cold and stated that his symptoms have improved. At the moment he is asymptomatic. He was put on Levaquin during hospitalization and sent home with a total of 7 days of treatment. Hypertension -Hospital course patient was tachycardic. His atenolol was discontinued. Will restart his atenolol since he is tachycardic most likely this was helping his heart rate. Continue amlodipine due to high blood pressure. Pt Condition on Discharge: Deteriorating Discharge Disposition: Discharge Home Discharge Time: > 30 minutes Discharge Instructions DIET: Follow Instructions for: Heart Healthy Diet Activities you can perform: See Additionl Instruction Other Activity Instructions: Do not drive until you are cleared by your primary care provider or neurologist. Follow up Referrals: Neurology - 1 Week PCP Follow-up - 1 Week New Medications: Amlodipine (Norvasc) 5 Mg Tab 5 MG PO DAILY for hypertension, #30 TAB 0 Refills Levofloxacin (Levaquin) 750 Mg Tablet 750 MG PO DAILY for pneumonia, #5 TAB 0 Refills Continued Medications: Atenolol (Atenolol) 25 Mg Tab 25 MG PO DAILY, TAB Brimonidine Tartrate (Brimonidine Tartrate) 0.2 % Jaswant 1 DROP BID, JASWANT Bupropion Hcl (Bupropion Hcl) 100 Mg Tab 150 MG PO Q12, TAB Latanoprost (Xalatan) 0.005 % Soln 1 DROP OD HS, ML Simvastatin (Zocor 40 mg) 40 Mg Tab 40 TAB PO HS, TAB Radha Espino MD Mar 27, 2017 11:19
[2017-03-27 12:10] VITALS: BP 142/60; PULSE 72; RESP 20; TEMP 97.9; O2SAT 98
[2017-03-27 12:31] LABS: HEMOGLOBIN A1C 5.6 % (4.3-6.0)
--- NOTE | 2017-03-29 09:54 | RADRPT ---
EXAM DATE/TIME: 03/26/2017 14:02 [facility] COMPARISON: MRA BRAIN W/O CONTRAST, July 04, 2015, 11:18. INDICATIONS : Dizziness. Unsteady gait. MEDICAL HISTORY : Lymphoma. SURGICAL HISTORY : Colon resection. lt shoulder, lt hip ENCOUNTER: Initial ACUITY: 1 day PAIN SCORE: 0/10 LOCATION: cranial Please note a normal MRA of the brain does not entirely exclude the possibility of a small aneurysm, nor the possibility of distal intracranial vessel disease. TECHNIQUE: 3D time of flight MRA was performed. Source images, multiplanar STS MIP, and 3D volume MIP reconstru ctions were reviewed. FINDINGS: There is poor visualization of the A-1 segment of the right anterior cerebral artery. This may be co ngenital. There is no major branch vessel occlusion Bibasilar artery is patent. CONCLUSION: Negative for major branch vessel occlusion. Justus Millard MD FACR Board Certified Radiologist. This report was verified electronically.
== END 2017-03-27 12:17 | disposition home or self-care (01) ==
LOC: NEPD 12:36 → NEDA 16:03 → NEPFCDU 17:41
PROVIDERS: ADMIT Family Medicine; ATTEND Family Medicine
DX: J18.9 Pneumonia, unspecified organism (principal); R26.81 Unsteadiness on feet; E78.5 Hyperlipidemia, unspecified; E16.2 Hypoglycemia, unspecified; I10 Essential (primary) hypertension; H40.9 Unspecified glaucoma; Z79.899 Other long term (current) drug therapy; Z90.49 Acquired absence of other specified parts of digestive tract; Z93.3 Colostomy status
CPT/HCPCS: 70450; 70544; 70551; 71045; 71260; 72141; 74177; 80053; 82607; 82948; 83036; 84443; 85025; 85652; 93005; 95819; 96361; 96365; 96366; 96367; 97162; 99285; G0378; G8987; G8988; J0456; J0696; J7030; J7050; Q9967